=== PATIENT | female | born 1965 | race Hispanic/Latino ===

== ENCOUNTER 2016-11-28 09:24 | Outpatient (CLI) | payer BC ==
--- NOTE | 2016-11-28 16:53 | Cat Scan Report ---
CT chest with contrast: History: Breast cancer with bilateral mastectomy. Transverse images obtained through the chest with coronal and sagittal reformatted images. Comparison made to prior study of February 13, 2015. There bilateral mastectomies. No chest wall masses identified. Peripheral left upper lobe scarring and peripheral right lower lobe scarring present and unchanged from prior exam. No pulmonary nodules. No axillary, hilar, mediastinal adenopathy identified. Unremarkable thoracic aorta. No pulmonary filling abnormalities. Impression: No evidence of metastatic disease nor interval change.
--- NOTE | 2016-11-29 11:03 | Cat Scan Report ---
CT abdomen and pelvis with contrast: Breast cancer. Transverse images are obtained through the abdomen and pelvis with coronal and sagittal 2-D reformatted images. Comparison is made to a prior study in February 2015. Images of the abdomen are unremarkable. The steatosis of the liver described on prior study is not currently evident. Small cortical cyst in the upper right kidney is unchanged. The retroperitoneal structures are otherwise unremarkable and likewise unchanged. The abdominal aorta is normal in size and contour. There is no periaortic or mesenteric adenopathy appreciated. The partially opacified bowel and mesentery appear normal. The appendix is visualized. There is a fat containing umbilical hernia which remains unchanged. Sections through the pelvis demonstrate interval hysterectomy. The previously there are no blastic or lytic bone lesions identified. described enlarged left ovary is no longer apparent. Impression: No metastatic disease identified.
== END 2016-11-28 09:25 | disposition home or self-care (01) ==
LOC: SPVIMAG 09:24
PROVIDERS: ATTEND Internal Medicine Hematology & Oncology
DX: C50.919 Malignant neoplasm of unspecified site of unspecified female breast (principal); N28.1 Cyst of kidney, acquired; K76.0 Fatty (change of) liver, not elsewhere classified; K42.9 Umbilical hernia without obstruction or gangrene; Z90.710 Acquired absence of both cervix and uterus; Z90.13 Acquired absence of bilateral breasts and nipples
CPT/HCPCS: 71260; 74177; Q9967

== ENCOUNTER 2016-12-15 06:57 | Outpatient (CLI) | payer BC ==
--- NOTE | 2016-12-15 14:32 | PET Report ---
PET SB TO MT subsequent: HISTORY: Restaging of breast cancer. TECHNIQUE: 14.4 millicuries F-18 FDG was administered intravenously. Noncontrast CT images and PET images were obtained from the skull base to the proximal thighs. Fused images were reviewed on a workstation. The patient's blood glucose level measured 152. COMPARISON: 09/24/13. FINDINGS: BRAIN: physiologic FDG uptake in the imaged brain. NECK: physiologic FDG uptake. MEDIASTINUM: physiologic FDG uptake. LUNGS: physiologic FDG uptake. CHEST: Bilateral mastectomy changes are noted. No recurrent chest wall mass is appreciated. Physiologic FDG uptake. PLEURA/PERICARDIUM: physiologic FDG uptake. THORACIC LYMPH NODES: physiologic FDG uptake. HEPATOBILIARY: physiologic FDG uptake. Mean liver SUV measures 4.0. PANCREAS: physiologic FDG uptake. SPLEEN: physiologic FDG uptake. ADRENAL GLANDS: physiologic FDG uptake. KIDNEYS/RENAL COLLECTING SYSTEMS: physiologic FDG uptake. BOWEL/MESENTERY: physiologic FDG uptake. PELVIC VISCERA: physiologic FDG uptake. ABDOMINAL/PELVIC LYMPH NODES: physiologic FDG uptake. MUSCULOSKELETAL: There are 3 subtle but new areas of increased radiotracer uptake. There is a subtle focus of increased uptake in T10 with SUV max measuring 3.2. T11 with SUV max measuring 4.0. L4 with SUV max measuring 4.2. Please note there are no obvious bony lesions on the CT images in these areas. IMPRESSION: Findings concerning for disease metastasis since 09/24/13. There are 3 subtle areas of new bony uptake of the radiotracer within T10, T11 and L4 as outlined above. Please note that no definite bony lesions are detected on the CT images. Consider correlation with MR with contrast.
== END 2016-12-15 06:58 | disposition home or self-care (01) ==
LOC: PET 06:57
PROVIDERS: ATTEND Internal Medicine Hematology & Oncology
DX: C50.512 Malignant neoplasm of lower-outer quadrant of left female breast (principal); Z90.13 Acquired absence of bilateral breasts and nipples
CPT/HCPCS: 78815; A9552

== ENCOUNTER 2017-04-06 06:26 | Outpatient (CLI) | payer BC ==
--- NOTE | 2017-04-07 08:45 | PET Report ---
PET SB TO MT SUBSEQUENT: HISTORY: Restaging of left breast cancer. TECHNIQUE: 15.5 millicuries F-18 FDG was administered intravenously. Noncontrast CT images and PET images were obtained from the skull base to the proximal thighs. Fused images were reviewed on a workstation. The patient's blood glucose level measured 145. COMPARISON: 12/15/16. FINDINGS: BRAIN: physiologic FDG uptake in the imaged brain. NECK: physiologic FDG uptake. MEDIASTINUM: physiologic FDG uptake. LUNGS: physiologic FDG uptake. CHEST WALL: Bilateral mastectomy changes are again noted. No recurrent chest wall mass is identified. PLEURA/PERICARDIUM: physiologic FDG uptake. THORACIC LYMPH NODES: physiologic FDG uptake. HEPATOBILIARY: physiologic FDG uptake. Mean liver SUV measures . PANCREAS: physiologic FDG uptake. SPLEEN: physiologic FDG uptake. ADRENAL GLANDS: physiologic FDG uptake. KIDNEYS/RENAL COLLECTING SYSTEMS: physiologic FDG uptake. BOWEL/MESENTERY: physiologic FDG uptake. PELVIC VISCERA: physiologic FDG uptake. ABDOMINAL/PELVIC LYMPH NODES: physiologic FDG uptake. MUSCULOSKELETAL: Subtle bony uptake within T10, T11 and L4 are again identified and essentially unchanged. Uptake in the T10 vertebral body has increased from 3.2 to 3.5. Uptake in T11 has decreased from 4.0 to 3.6. Uptake within the L4 has decreased from 4.2 to 3.7. No new areas of abnormal bony uptake. Please note that again, no suspicious bony lesion is demonstrated on the CT images. IMPRESSION: Relatively stable findings since 12/15/16 exam. Again there are 3 subtle areas of radiotracer uptake within T10, T11 and L4 with no lytic or blastic lesion detected on the CT images. Please see above.
== END 2017-04-06 06:27 | disposition home or self-care (01) ==
LOC: PET 06:26
PROVIDERS: ATTEND Internal Medicine Hematology & Oncology
DX: C50.512 Malignant neoplasm of lower-outer quadrant of left female breast (principal); F32.9 Major depressive disorder, single episode, unspecified; F41.9 Anxiety disorder, unspecified; Z87.891 Personal history of nicotine dependence; Z90.13 Acquired absence of bilateral breasts and nipples; Z79.899 Other long term (current) drug therapy
CPT/HCPCS: 78815; 82962; A9552

== ENCOUNTER 2017-07-06 09:45 | Outpatient (CLI) | payer BC ==
--- NOTE | 2017-07-07 10:38 | PET Report ---
PET SB TO MT SUBSEQUENT: HISTORY: Breast cancer. TECHNIQUE: 15.5 millicuries F-18 FDG was administered intravenously. Noncontrast CT images and PET images were obtained from the skull base to the proximal thighs. Fused images were reviewed on a workstation. The patient's blood glucose level measured 162. COMPARISON: 04/06/17. FINDINGS: BRAIN: physiologic FDG uptake in the imaged brain. NECK: physiologic FDG uptake. CHEST WALL: Stable bilateral mastectomy changes. No recurrent chest wall mass. MEDIASTINUM: physiologic FDG uptake. LUNGS: physiologic FDG uptake. PLEURA/PERICARDIUM: physiologic FDG uptake. THORACIC LYMPH NODES: physiologic FDG uptake. HEPATOBILIARY: physiologic FDG uptake. Mean liver SUV measures 4.3. PANCREAS: physiologic FDG uptake. SPLEEN: physiologic FDG uptake. ADRENAL GLANDS: physiologic FDG uptake. KIDNEYS/RENAL COLLECTING SYSTEMS: physiologic FDG uptake. BOWEL/MESENTERY: physiologic FDG uptake. PELVIC VISCERA: physiologic FDG uptake. ABDOMINAL/PELVIC LYMPH NODES: physiologic FDG uptake. MUSCULOSKELETAL: Subtle bony uptake of the radiotracer within T10, T11 and L4 are again identified and minimally changed. Uptake within T10 has increased from 3.5 to 4.2. Uptake within T11 is stable at 3.6. Uptake within L4 has increased from 3.7 to 4.1. Approximately 4 new bony lesions are identified in the pelvis. A focal area of uptake in the right posterior iliac bone demonstrates a max SUV of 4.1. Focal uptake in the superior sacrum demonstrates a max SUV of 3.6. Focal uptake in the roof of the right acetabulum demonstrates a max SUV of 3.8. Uptake within the right ischium demonstrates a max SUV of 4.1. IMPRESSION: Minimal progression of disease is suspected since 04/06/17. The areas of subtle uptake within T10, T11 and L4 appear stable or slightly increased. There are 4 new suspicious bony lesions in the pelvis as outlined above. Perhaps very subtle sclerosis is identified at the bone lesions on the CT images on today's exam.
== END 2017-07-06 09:46 | disposition home or self-care (01) ==
LOC: PET 09:45
PROVIDERS: ATTEND Internal Medicine Hematology & Oncology
DX: C79.51 Secondary malignant neoplasm of bone (principal); C50.512 Malignant neoplasm of lower-outer quadrant of left female breast; M89.9 Disorder of bone, unspecified; Z90.13 Acquired absence of bilateral breasts and nipples; Z79.899 Other long term (current) drug therapy
CPT/HCPCS: 78815; 82962; A9552

== ENCOUNTER 2017-07-19 08:23 | Day surgery (SDC) | payer BC ==
[2017-07-19 09:09] LABS: Hematocrit 38.4 % (30.3-42.9); Mean Corpuscular HGB Conc 34 % (30-34); Mean Corpuscular Hemoglobin 33 pg (28-32); Mean Corpuscular Volume 96 fl (79-97); Platelet Count 198 K/mm3 (140-440); Red Blood Count 3.99 M/mm3 (3.65-5.03); Red Cell Distribution Width 13.9 % (13.2-15.2)
[2017-07-19 09:16] LABS: INR 0.9 (0.87-1.13)
[2017-07-19 09:17] LABS: Partial Thromboplastin Time 23.6 Sec. (24.2-36.6)
[2017-07-19] MEDS ORDERED: VERSED IV ONE (10:13)
[2017-07-19] MEDS ORDERED: SUBLIMAZE IV ONE (10:13)
[2017-07-19 10:30] LABS: Anisocytosis 1+; Blastocytes % (Manual) 0 %; Microcytosis Few
[2017-07-19 10:31] LABS: Diff Status Complete; Giant Platelets Rare; Ovalocytes 1+; Stomatocytes Few
--- NOTE | 2017-07-19 12:00 | Cat Scan Report ---
CT BIOPSY BONE DEEP HISTORY: Breast cancer, new bony lesions in pelvis. DESCRIPTION OF PROCEDURE: Informed consent was obtained. Sterile technique was utilized. 1% lidocaine for skin anesthesia. Conscious sedation was accomplished with Versed and fentanyl. The patient was sedated for 10 minutes. Independent cardiorespiratory monitoring by RN. Intraobserver time was [address] guidance, a 10-gauge introducer needle was advanced into the right posterior iliac bone at the site of an approximate 3.5 x 1.5 cm sclerotic bony lesion which was positive on recent PET imaging. One fine needle aspiration and one 11-gauge core biopsy was obtained for pathology. Samples were deemed adequate by the pathologist on site. No complications. IMPRESSION: Successful CT-guided biopsy of a right posterior iliac bone lesion.
[2017-07-19 12:18] VITALS: BP 108/72
== END 2017-07-19 12:35 | disposition home or self-care (01) ==
LOC: CATHLABREC 08:23 → EDSTATUS 08:30 → CATHLABREC 12:35
PROVIDERS: ATTEND Internal Medicine Hematology & Oncology
DX: C79.51 Secondary malignant neoplasm of bone (principal); Z85.3 Personal history of malignant neoplasm of breast; Z79.899 Other long term (current) drug therapy; Z79.01 Long term (current) use of anticoagulants
CPT/HCPCS: 20225; 36415; 77012; 85007; 85025; 85610; 85730; 88305; 88311; 88333; 88341; 88342; 88361; 99156; J2250; J3010; 88307

== ENCOUNTER 2017-12-05 15:09 | Outpatient (CLI) | payer BC ==
[2017-12-05 16:06] LABS: Blood Urea Nitrogen 18 mg/dL (7-17)
--- NOTE | 2017-12-06 08:03 | Magnetic Resonance Report ---
MRI THORACIC SPINE WITH AND WITHOUT CONTRAST MRI LUMBAR SPINE WITH AND WITHOUT CONTRAST INDICATION: Malignant neoplasm of lower-outer quadrant of left breast. COMPARISON: 07/17/2017 thoracic and lumbar spine MRIs. FINDINGS: Axial and sagittal T1 and T2-weighted MRIs of the thoracic and lumbar spines performed utilizing 15 mL MultiHance intravenously. THORACIC SPINE: Innumerable enhancing metastatic lesions throughout the thoracic spine again noted, the largest lower thoracic, predominantly involving T9-T12 with largest T11 vertebral body lesion on the left measuring 2.3 cm. Imaged lower cervical-upper thoracic lesions measuring up to approximately 1.2 cm in T1 also noted. No compression fractures. Normal thoracic spinal cord with no enhancing cord lesions. Multilevel degenerative changes again noted with disc/osteophyte complexes with partial CSF effacement as left anterolateral at T5-T6, axial series 6, image 33, left more than right at T6-T7, bilateral anterolateral at T7-T8, right anterolateral at T9-T10 with underlying cord flattening as on axial image 17 and mild left anterolateral at T11-T12. Mild disc bulge/osteophyte complexes also suspected at C5-C6 and C6-C7. Normal paraspinal soft tissues. T11 and T12 inferior endplate irregularities or Schmorl's nodes incidentally again noted. LUMBAR SPINE: Numerous enhancing metastatic lesions also noted throughout the lumbar spine, largest in L4 vertebral body on the right measuring approximately 2 cm. Similar enhancing lesions also again seen in the included sacrum. Normal conus medullaris terminating behind T12-L1. No compression fracture or spinal stenosis. Normal paraspinal soft tissues. A 5 mm right interpolar renal cyst posteriorly again seen, axial series 6, image 37. Slight diffuse disc bulge at L3-L4. Mild L5-S1 facet arthropathy, left more than right. CONCLUSION: Diffuse multilevel thoracic and lumbar spine metastatic involvement again noted, including imaged lower cervical and upper sacral levels as well without compression fractures or significant interval change. Few degenerative changes also seen, as described above. Thank you for the opportunity to participate in this patient's care.
== END 2017-12-05 15:10 | disposition home or self-care (01) ==
LOC: MRI 15:09
PROVIDERS: ATTEND Internal Medicine Hematology & Oncology
DX: C79.51 Secondary malignant neoplasm of bone (principal); C79.89 Secondary malignant neoplasm of other specified sites; C50.512 Malignant neoplasm of lower-outer quadrant of left female breast; M12.88 Other specific arthropathies, not elsewhere classified, other specified site; M47.895 Other spondylosis, thoracolumbar region; N28.1 Cyst of kidney, acquired
CPT/HCPCS: 36415; 72157; 72158; 82565; 84520; A9577

== ENCOUNTER 2018-01-25 06:07 | Outpatient (CLI) | payer BC ==
--- NOTE | 2018-01-25 15:39 | PET Report ---
PET/CT:01/25/18 06:07:00 CLINICAL: Breast cancer restaging. Followup skeletal metastases. RADIOPHARMACEUTICAL: 14.693mCi F18-FDG. COMPARISON: 07/06/17 PET/CT and MRI of thoracic and lumbar spine 12/05/17 TECHNIQUE- Following intravenous injection of F-18 FDG and an approximately 60 minute uptake period, CT and PET images from the mid skull to the upper thighs were acquired with the patient in the fasted state. No contrast was administered. The CT protocol used for this PET CT study is designed for attenuation correction and anatomic localization of PET abnormalities. This x ray service engineer CT is not desired to produce and cannot replace, lvyme-du-wlp-art diagnostic CT scans with specific imaging protocols for different body parts and indications. Plasma glucose the time of this test: 159g/dl. The standardized uptake values (SUV) are normalized to patient body weight and indicate the highest activity concentration (SUV max) in a given disease site. FINDINGS: Brain--Physiologic FDG uptake in the visualized regions of the brain. Neck--Physiologic FDG uptake . Chest--Physiologic FDG uptake in mediastinal blood pool and myocardium. Status post bilateral mastectomy. Lungs--No abnormal uptake. Stable left upper lobe scar. No pulmonary nodule or mass. Pleura/pericardium--No abnormal uptake. Thoracic nodes--No abnormal uptake. Hepatobiliary--No abnormal uptake. Liver background SUV mean, as a reference for comparing FDG studies, is 3.8 compared to 4.4 on the last exam. No liver mass. The liver has enlarged and is diffusely hypodense. It measures 21 Hounsfield units in density compared to 49 Hounsfield units on the last exam. Spleen--No abnormal uptake. Pancreas--No abnormal uptake. Adrenal Glands--No abnormal uptake. Kidneys/Ureters/Bladder--No abnormal uptake. Abdominopelvic Nodes--No abnormal uptake. Bowel/Peritoneum/Mesentery--No abnormal uptake. Pelvic organs--No abnormal uptake. Bones/Soft Tissues--No abnormal uptake. Subtle FDG uptake has resolved in the spine and pelvis. A 1 cm sclerotic lesion of L5 is more prominent than on the last exam. IMPRESSION- 1.Positive response to treatment with resolution of abnormal FDG uptake in the skeleton. 2. No new disease. 3. Treatment effect in a 1 cm L5 vertebral body lesion. 4. Interval development of hepatic steatosis and hepatomegaly.
== END 2018-01-25 06:08 | disposition home or self-care (01) ==
LOC: PET 06:07
PROVIDERS: ATTEND Internal Medicine Hematology & Oncology
DX: C79.51 Secondary malignant neoplasm of bone (principal); C50.512 Malignant neoplasm of lower-outer quadrant of left female breast; K76.0 Fatty (change of) liver, not elsewhere classified; R16.0 Hepatomegaly, not elsewhere classified; Z90.13 Acquired absence of bilateral breasts and nipples
CPT/HCPCS: 78815; 82962; A9552

== ENCOUNTER 2018-05-10 09:43 | Outpatient (CLI) | payer BC ==
--- NOTE | 2018-05-15 07:37 | PET Report ---
PET SB TO MT SUBSEQUENT: HISTORY: Breast cancer. TECHNIQUE: 11.4 millicuries F-18 FDG was administered intravenously. Noncontrast CT images and PET images were obtained from the skull base to the proximal thighs. Fused images were reviewed on a workstation. The patient's blood glucose level measured 139. COMPARISON: 01/25/18. FINDINGS: BRAIN: physiologic FDG uptake in the imaged brain. NECK: physiologic FDG uptake. CHEST WALL: physiologic FDG uptake. Stable bilateral mastectomy changes. No recurrent mass. MEDIASTINUM: physiologic FDG uptake. LUNGS: physiologic FDG uptake. Stable radiation changes in the left upper lobe. No new nodule or mass. PLEURA/PERICARDIUM: physiologic FDG uptake. THORACIC LYMPH NODES: physiologic FDG uptake. HEPATOBILIARY: physiologic FDG uptake. Mean liver SUV measures 4.0 as opposed to 3.6 on the previous exam. Mild hepatic steatosis is unchanged. PANCREAS: physiologic FDG uptake. SPLEEN: physiologic FDG uptake. ADRENAL GLANDS: physiologic FDG uptake. KIDNEYS/RENAL COLLECTING SYSTEMS: physiologic FDG uptake. BOWEL/MESENTERY: physiologic FDG uptake. PELVIC VISCERA: physiologic FDG uptake. ABDOMINAL/PELVIC LYMPH NODES: physiologic FDG uptake. MUSCULOSKELETAL: Numerous subtle sclerotic lesions throughout the lower cervical spine, thoracic spine and lumbar spine appear stable in size and number. No abnormal increased bony uptake of the radiotracer is demonstrated. IMPRESSION: Stable findings since 01/15/18. Multiple subtle sclerotic bony lesions throughout the spine appear stable in size, number and metabolic activity. No new areas of disease is detected.
== END 2018-05-10 09:44 | disposition home or self-care (01) ==
LOC: PET 09:43
PROVIDERS: ATTEND Internal Medicine Hematology & Oncology
DX: C50.512 Malignant neoplasm of lower-outer quadrant of left female breast (principal); Z87.891 Personal history of nicotine dependence; Z90.10 Acquired absence of unspecified breast and nipple; Z90.710 Acquired absence of both cervix and uterus; Z91.048 Other nonmedicinal substance allergy status
CPT/HCPCS: 78815; A9552

== ENCOUNTER 2019-01-24 08:55 | Outpatient (CLI) | payer BC ==
--- NOTE | 2019-01-25 10:46 | PET Report ---
PET/CT:01/24/19 08:55:00 CLINICAL: Breast cancer restaging. RADIOPHARMACEUTICAL: 13.982mCi F18-FDG. COMPARISON: 10/25/18 PET/CT TECHNIQUE- Following intravenous injection of F-18 FDG and an approximately 60 minute uptake period, CT and PET images from the mid skull to the upper thighs were acquired with the patient in the fasted state. No contrast was administered. The CT protocol used for this PET CT study is designed for attenuation correction and anatomic localization of PET abnormalities. This swedish masseuse CT is not desired to produce and cannot replace, huv[facility]-or-ib[facility]-art diagnostic CT scans with specific imaging protocols for different body parts and indications. Plasma glucose at the time of this test: 152g/dl. The standardized uptake values (SUV) are normalized to patient body weight and indicate the highest activity concentration (SUV max) in a given disease site. FINDINGS: Brain--Physiologic FDG uptake in the visualized regions of the brain. Neck--Physiologic FDG uptake in mucosal structures. No mass or lymphadenopathy. Chest--Physiologic FDG uptake in mediastinal blood pool and myocardium. Lungs--No abnormal uptake. The previously described bilateral multilobar patchy lung opacities have resolved. Stable left upper lobe benign scar. No pulmonary nodule or mass. Pleura/pericardium--No abnormal uptake. Thoracic nodes--No abnormal uptake. FDG uptake in the left pulmonary hilum has resolved. Hepatobiliary--The liver is diffusely hypodense and measures 73 Hounsfield units compared to 145 also units on the last exam. No liver mass is identified by CT. However, several new foci of FDG uptake are suspicious. The most prominent is in the right lobe of SUV 5.5 and there are 2 additional foci in the right lobe with SUV 5.1 and 5.2. Liver background SUV mean, as a reference for comparing FDG studies, is 4.0 compared to 3.0 on the last exam. Spleen--No abnormal uptake. Pancreas--No abnormal uptake. Adrenal Glands--No abnormal uptake. Kidneys/Ureters/Bladder--No abnormal uptake. Abdominopelvic Nodes--No abnormal uptake. Bowel/Peritoneum/Mesentery--No abnormal uptake. Pelvic organs--No abnormal uptake. Bones/Soft Tissues--No abnormal uptake. Several stable non-FDG avid mildly sclerotic bone lesions and no new bone lesions. IMPRESSION- 1. Resolution of bilateral multilobar lung opacities. 2. Several new suspicious foci of FDG uptake liver no identifiable lesions on the noncontrast CT. Recommend CT liver with contrast. 3. No evidence of pulmonary or sammy metastasis. 4. Stable non-FDG avid skeletal metastases.
== END 2019-01-24 08:56 | disposition home or self-care (01) ==
LOC: PET 08:55
PROVIDERS: ATTEND Internal Medicine Hematology & Oncology
DX: C50.512 Malignant neoplasm of lower-outer quadrant of left female breast (principal); R91.8 Other nonspecific abnormal finding of lung field; Z90.710 Acquired absence of both cervix and uterus
CPT/HCPCS: 78815; 82962; A9552

== ENCOUNTER 2019-05-02 06:40 | Outpatient (CLI) | payer BC ==
--- NOTE | 2019-05-02 11:17 | PET Report ---
PET/CT HISTORY: Malignant neoplasm of lower outer quadrant of left female breast, restaging. TECHNIQUE: The patient's fasting blood glucose was 188. The patient weighed 77 kg. The patient was injected with 14.4 mCi of FDG in the left hand at 0748 hours and imaging was started at 0830 hours. The patient was imaged from the skull base to the thighs. All CT scans at this location are performed using CT dose reduction for ALARA by means of automated exposure control. Fused images were reviewed on a workstation. COMPARISON: 01/24/2019 FINDINGS: FDG findings: No areas of pathologic hypermetabolic activity identified on today's exam. Indetermina te focal areas of increased radiotracer uptake in the liver have resolved. Mean liver uptake measures 6.7 on today's exam. Non-FDG findings: Bilateral mastectomy changes are stable. No recurrent chest wall mass or adenopath y. Heart size is within normal limits. No mediastinal adenopathy. The lungs are clear. Minor areas of scarring in the anterior lungs are stable. Diffuse fatty infiltration throughout the liver is again noted. No focal liver mass is detected. The biliary system, pancreas, spleen, kidneys and adrenal glands are unremarkable. The bowel loops are no rmal caliber. Normal appendix. Hysterectomy changes are again noted. No evidence for abdominal mass, ascites or adenopathy. Numerous tiny sclerotic bony lesions throughout the axial skeleton appear unchanged in size and numbe r. No abnormal uptake on PET. IMPRESSION: Essentially negative PET/CT. Multiple tiny sclerotic bony lesions are again seen which ap pears stable. No hypermetabolic bony lesions have developed. Previously described foci of increased u ptake in the liver have resolved. No liver mass is identified on noncontrast CT. No new areas of dise ase are identified. Signer Name: Ishmael Del Toro Jr, MD Signed: 05/02/2019 11:13 AM Workstation Name: [id number]
== END 2019-05-02 06:41 | disposition home or self-care (01) ==
LOC: PET 06:40
PROVIDERS: ATTEND Internal Medicine Hematology & Oncology
DX: C50.512 Malignant neoplasm of lower-outer quadrant of left female breast (principal); Z90.710 Acquired absence of both cervix and uterus
CPT/HCPCS: 78815; 82962; A9552

== ENCOUNTER 2019-08-29 08:54 | Outpatient (CLI) | payer BC ==
[2019-08-29 09:58] LABS: Blood Urea Nitrogen 15 mg/dL (7-17)
--- NOTE | 2019-08-29 12:57 | Cat Scan Report ---
CT CHEST WITH IV CONTRAST CT ABDOMEN AND PELVIS WITHOUT AND WITH CONTRAST INDICATION / CLINICAL INFORMATION: MET BREAST CANCER/COMPARE TO PREVIOUS. TECHNIQUE: Axial CT images were obtained through the abdomen and pelvis before contrast and through the chest, a bdomen, and pelvis after 100 mL Omnipaque [address] scans at this location are performe d using CT dose reduction for ALARA by means of automated exposure control. COMPARISON: Most recent diagnostic CT scan is from 11/28/2016. Limited correlation is made with a PET/CT scan from 05/02/2019. FINDINGS: HEART: No significant abnormality. THORACIC AORTA: No significant abnormality. MEDIASTINUM and TAMMY: No significant abnormality. LUNGS: No acute air space or interstitial disease. No nodules. Stable fibrotic changes and mild bron chiectasis in the upper lobes anteriorly, suggestive of postradiation fibrosis. PLEURA: No significant pleural effusion. No pneumothorax. ADDITIONAL CHEST FINDINGS: Bilateral mastectomy. LIVER: No focal liver lesion. No intrahepatic biliary dilatation. Diffuse hypoattenuation of the pare nchyma is suggestive of hepatic steatosis, with sparing at the gallbladder fossa. GALLBLADDER: No significant abnormality. BILE DUCTS: No significant abnormality. PANCREAS: No significant abnormality. SPLEEN: No significant abnormality. ADRENALS: No significant abnormality. RIGHT KIDNEY and URETER: No significant abnormality. There are couple of tiny cysts in the kidney jess t are stable since at least 11/28/2016. LEFT KIDNEY and URETER: No significant abnormality. STOMACH and SMALL BOWEL: No significant abnormality. COLON: No significant abnormality. APPENDIX: No significant abnormality. PERITONEUM: No free fluid. No free air. No fluid collection. LYMPH NODES: No significant adenopathy. AORTA and ARTERIES: No significant abnormality. IVC and VEINS: No significant abnormality. URINARY BLADDER: No significant abnormality. REPRODUCTIVE ORGANS: Uterus is absent. No significant adnexal abnormality. ADDITIONAL FINDINGS: None. SKELETAL SYSTEM: No new abnormality. Innumerable cysts sclerotic foci are seen throughout the axial s [place], appearing unchanged. IMPRESSION: 1. The numerous sclerotic lesions throughout the axial skeleton are most compatible with treated meta stasis. Correlation with today's bone scan is recommended. Otherwise, there is no evidence of metasta tic disease in the chest, abdomen and pelvis. 2. Status post bilateral mastectomies without CT evidence of local recurrence. 3. Suspected hepatic steatosis. Signer Name: Esau Solo MD Signed: 08/29/2019 12:53 PM Workstation Name: [id number]
--- NOTE | 2019-08-30 12:59 | Nuclear Medicine Report ---
WHOLE BODY BONE SCAN HISTORY: History of left breast cancer and numerous sclerotic skeletal lesions by CT. COMPARISON: Same day CT chest, abdomen and pelvis and 05/02/2019 PET/CT. No previous bone scan is avai lable. TECHNIQUE: Following administration of Tc-99m MDP, static whole body anterior and posterior delayed p hase images were acquired. RADIOPHARMACEUTICAL: 27.5 mCi Tc-99m MDP. FINDINGS: Multifocal mild uptake in the sternum with the greatest uptake in the lower one third of the midline sternum and the right manubrium correlate with sclerotic lesions by CT. Subtle focal uptake in the ri ght posterior seventh rib with no correlating lesion by CT. Focal uptake at the inferior aspect of th e left SI joint with no correlating CT lesion. Focal uptake of the distal humerus at the elbow. Krystle l physiologic background activity. Additional Findings: None. IMPRESSION: 1. Suspicious multifocal uptake in the sternum, manubrium, right seventh posterior rib, left SI joint and distal left numerous. 2. No other suspicious skeletal lesions. Signer Name: Param Jackson MD Signed: 08/29/2019 1:17 PM Workstation Name: [id number]
== END 2019-08-29 08:55 | disposition home or self-care (01) ==
LOC: NM 08:54
PROVIDERS: ATTEND Internal Medicine Hematology & Oncology
DX: C50.512 Malignant neoplasm of lower-outer quadrant of left female breast (principal)
CPT/HCPCS: 36415; 71260; 74177; 78306; 82565; 84520; A9503; Q9967

== ENCOUNTER 2019-12-05 09:42 | Outpatient (CLI) | payer BC ==
--- NOTE | 2019-12-05 14:22 | PET Report ---
PET/CT HISTORY: HX OF BREAST CA /RESTAGING. TECHNIQUE: The patient's fasting blood glucose was 198. The patient weighed 175 lbs. The patient w as injected with 14.11 mCi of FDG in the left antecubital fossa at 1101 and imaging was started at 11 58. The patient was imaged from the skull base to the thighs. All CT scans at this location are perf ormed using CT dose reduction for ALARA by means of automated exposure control. Images were reviewed on a workstation. COMPARISON: PET/CT dated 05/02/2019. Medicine bone scan dated 08/29/2019. FINDINGS: IMAGED BRAIN: Physiologic FDG uptake. NECK: Physiologic FDG uptake. CHEST WALL: Physiologic FDG uptake. Stable mastectomy changes. No recurrent chest wall mass or extra thoracic adenopathy. MEDIASTINUM: Physiologic FDG uptake. LUNGS: Physiologic FDG uptake. HEPATOBILIARY: Physiologic FDG uptake. PANCREAS: Physiologic FDG uptake. SPLEEN: Physiologic FDG uptake. KIDNEYS/BLADDER: Physiologic FDG uptake. ADRENAL GLANDS: Physiologic FDG uptake. GI/MESENTERY: Physiologic FDG uptake. PELVIC VISCERA: Physiologic FDG uptake. LYMPH NODES: Physiologic FDG uptake. OSSEOUS STRUCTURES: Diffuse focal sclerotic lesions throughout the skeletal structures are again not ed on the CT images and not significantly changed in size and number. There is however new areas of m ild hypermetabolic activity in the bony structures as suggested on recent nuclear medicine bone scan. There is borderline uptake in the right side of the manubrium with max SUV measuring 2.5. There is i ncreased uptake in the mid sternal lesion with max SUV measuring 3.4. There is increased uptake in th e right side of the L1 vertebral body with max SUV measuring 6.7. There is a focus of increased uptak e in the right side of the sacrum near the level of S1 with max SUV measuring 4.7. ADDITIONAL FINDINGS: None. IMPRESSION: Mild progression of disease/recurrence is noted in the skeletal structures since the previous PET/CT . Subtle hypermetabolic bony lesions are identified in the right side of the manubrium, mid sternum, L1 vertebral body and right side of the sacrum. The numerous small sclerotic lesions appear unchanged on the CT images. No abnormal visceral organ uptake or sammy uptake is detected. Signer Name: Ishmael Del Toro Jr, MD Signed: 12/05/2019 2:17 PM Workstation Name: [id number]
== END 2019-12-05 09:43 | disposition home or self-care (01) ==
LOC: PET 09:42
PROVIDERS: ATTEND Internal Medicine Hematology & Oncology
DX: C50.512 Malignant neoplasm of lower-outer quadrant of left female breast (principal)
CPT/HCPCS: 78815; 82962; A9552

== ENCOUNTER 2020-03-19 06:25 | Outpatient (CLI) | payer MEDICARE ==
--- NOTE | 2020-03-19 11:01 | PET Report ---
PET-CT SCAN INDICATION / CLINICAL INFORMATION: BREAST CA C50.512. STAGING: Re-staging TECHNIQUE: Tumor imaging, positron emission tomography (PET) with concurrently acquired computed tomography (CT) for attenuation correction and anatomical localization; Skull Base to Mid Thigh - DOSE: 14.25 mCi F-18 FDG was administered IV per protocol in the left antecubital site - GLUCOSE: Patient's blood glucose at that time was (mg/dL): 147 - UPTAKE TIME: PET scan performed approximately 60 minutes after radiotracer administration. - CT SCAN DESCRIPTION: No oral or IV contrast. All CT scans at this location are performed using CT d ose reduction for ALARA by means of automated exposure control. COMPARISON: PET CT scan dated 12/05/2019 FINDINGS: HEAD / NECK: No abnormal radiotracer uptake in the neck. No significant CT abnormality. CHEST: No abnormal radiotracer uptake in the chest. There is some scarring bilaterally likely related to prior radiation area. Changes of bilateral mastectomy are noted. ABDOMEN / PELVIS: No abnormal radiotracer uptake in the abdomen. There is fatty infiltration of the l iver. LOWER EXTREMITIES: No abnormal radiotracer uptake in the visualized lower extremities. No significant CT abnormality. SKELETAL STRUCTURES: Low level in the sternum and manubrium is again noted. This measures up to 2.6 S UV on the current study the sternal area measured up to 3.4 previously. The previously noted abnormal uptake in the right aspect of the L1 vertebral body has resolved. The uptake in the sacrum is also i mproved. The right sacrum this area measures 3 SUV currently and measured 4.7 previously. There are innumerable sclerotic lesions in the imaged skeleton which appear essentially unchanged. ADDITIONAL FINDINGS: No additional significant findings. IMPRESSION: 1. There is extensive sclerotic osseous metastatic disease. Tracer uptake in the sternum and manubriu m is again noted. Sternal activity is mildly improved. Uptake in the L1 vertebra and in the sacrum no john on the prior study has improved as well. No new abnormalities are identified. Signer Name: Tay Elizabeth MD Signed: 03/19/2020 10:56 AM Workstation Name: [id number]
== END 2020-03-19 06:26 | disposition home or self-care (01) ==
LOC: PET 06:25
PROVIDERS: ATTEND Internal Medicine Hematology & Oncology
DX: C79.51 Secondary malignant neoplasm of bone (principal); C50.512 Malignant neoplasm of lower-outer quadrant of left female breast
CPT/HCPCS: 78815; 82962; A9552

== ENCOUNTER 2020-06-11 06:35 | Outpatient (CLI) | payer MEDICARE ==
--- NOTE | 2020-06-11 09:38 | PET Report ---
PET-CT SCAN INDICATION / CLINICAL INFORMATION: C50.512 LEFT BREAST CA. STAGING: Re-staging TECHNIQUE: Tumor imaging, positron emission tomography (PET) with concurrently acquired computed tomography (CT) for attenuation correction and anatomical localization; Skull Base to Mid Thigh - DOSE: 14.022 mCi F-18 FDG was administered IV per protocol - GLUCOSE: Patient's blood glucose at that time was (mg/dL): 176 - UPTAKE TIME: PET scan performed approximately 60 minutes after radiotracer administration. - CT SCAN DESCRIPTION: No oral or IV contrast. All CT scans at this location are performed using CT d ose reduction for ALARA by means of automated exposure control. COMPARISON: PET CT dated 03/19/2020. FINDINGS: HEAD / NECK: No abnormal radiotracer uptake in the neck. No significant CT abnormality. CHEST: No abnormal radiotracer uptake in the chest. No significant CT abnormality. ABDOMEN / PELVIS: No abnormal radiotracer uptake in the abdomen. Hepatic steatosis is unchanged. Mild generalized atherosclerosis is stable. No other significant CT abnormality. LOWER EXTREMITIES: No abnormal radiotracer uptake in the visualized lower extremities. No significant CT abnormality. SKELETAL STRUCTURES: There are stable mildly increased activity along the sternum and spine. No new s uspicious sites of increased metabolic activity are noted. Widespread sclerotic metastases have not s ignificantly changed. ADDITIONAL FINDINGS: No additional significant findings. IMPRESSION: 1. Stable widespread sclerotic bone metastases with associated low level increased metabolic activity . 2. No new sites of FDG avid neoplastic disease. Signer Name: Srikanth Torres MD Signed: 06/11/2020 9:33 AM Workstation Name: [id number]
== END 2020-06-11 06:36 | disposition home or self-care (01) ==
LOC: PET 06:35
PROVIDERS: ATTEND Internal Medicine Hematology & Oncology
DX: C79.51 Secondary malignant neoplasm of bone (principal); C50.512 Malignant neoplasm of lower-outer quadrant of left female breast
CPT/HCPCS: 78815; 82962; A9552

== ENCOUNTER 2020-09-17 07:27 | Outpatient (CLI) | payer MEDICARE ==
--- NOTE | 2020-09-17 12:01 | PET Report ---
PET-CT SCAN INDICATION / CLINICAL INFORMATION: C50.512. Left breast cancer STAGING: Re-staging TECHNIQUE: Tumor imaging, positron emission tomography (PET) with concurrently acquired computed tomography (CT) for attenuation correction and anatomical localization; Skull Base to Mid Thigh - DOSE: 14.83 mCi F-18 FDG was administered IV per protocol in the left elbow - GLUCOSE: Patient's blood glucose at that time was (mg/dL): 135 - UPTAKE TIME: PET scan performed approximately 60 minutes after radiotracer administration. - CT SCAN DESCRIPTION: No oral or IV contrast. All CT scans at this location are performed using CT d ose reduction for ALARA by means of automated exposure control. COMPARISON: PET CT from 06/11/2020. FINDINGS: HEAD / NECK: No abnormal radiotracer uptake in the neck. No significant CT abnormality. CHEST: No abnormal radiotracer uptake in the chest. There is similar probable scarring located latera lly along the left upper lobe. No other significant abnormality. ABDOMEN / PELVIS: New hypermetabolic liver masses are seen within both lobes. A commercial representative latera l segment left hepatic lobe mass on image [address] measures 2.9 x 2.6 cm with a maximum SUV of 5 .5. No other sites of suspiciously increased metabolic activity. Generalized steatosis is again seen. No other significant abnormality/interval changes. LOWER EXTREMITIES: No abnormal radiotracer uptake in the visualized lower extremities. No significant CT abnormality. SKELETAL STRUCTURES: Widespread sclerotic metastases are again seen throughout the spine, sternum and along the proximal humeri and femurs without significant interval change and similar associated mild ly increased metabolic activity. No new aggressive appearing lesion. ADDITIONAL FINDINGS: No additional significant findings. IMPRESSION: 1. Interval disease progression with development of multifocal hypermetabolic hepatic metastases. 2. Similar widespread bone metastases. Signer Name: Srikanth Torres MD Signed: 09/17/2020 11:57 AM Workstation Name: [id number]
== END 2020-09-17 07:28 | disposition home or self-care (01) ==
LOC: PET 07:27
PROVIDERS: ATTEND Internal Medicine Hematology & Oncology
DX: C50.512 Malignant neoplasm of lower-outer quadrant of left female breast (principal); C79.51 Secondary malignant neoplasm of bone; R16.0 Hepatomegaly, not elsewhere classified; K76.0 Fatty (change of) liver, not elsewhere classified
CPT/HCPCS: 78815; 82962; A9552

== ENCOUNTER 2021-02-25 06:42 | Outpatient (CLI) | payer MEDICARE ==
--- NOTE | 2021-02-25 09:37 | PET Report ---
PET/CT HISTORY: C50.512 LEFT BREAST CA. TECHNIQUE: The patient's fasting blood glucose was 187. The patient weighed 142 lbs. The patient w as injected with 13.0 mCi of FDG in the left antecubital fossa at 0722 hours and imaging was started at 0807 hours. The patient was imaged from the skull base to the thighs. All CT scans at this locati on are performed using CT dose reduction for ALARA by means of automated exposure control. Images wer e reviewed on a workstation. COMPARISON: 09/17/2020 FINDINGS: IMAGED BRAIN: Physiologic FDG uptake. NECK: Physiologic FDG uptake. CHEST WALL: Physiologic FDG uptake. Stable bilateral mastectomy changes. MEDIASTINUM: Physiologic FDG uptake. LUNGS: Physiologic FDG uptake. Stable subpleural scarring in the anterior left lung which probably r epresents radiation changes. No suspicious pulmonary lesion has developed. HEPATOBILIARY: Underlying hepatic steatosis is greatly improved since the previous exam. Numerous hy podense liver masses are identified on today's exam which appear slightly decreased in size and metab olic activity. A territory sales representative lesion in the left hepatic lobe has decreased from 2.9 x 2.6 cm to 2. 4 x 2.3 cm. Max SUV of this lesion has decreased from 5.5 to 2.2. No hypermetabolic liver lesions are appreciated on today's exam. PANCREAS: Physiologic FDG uptake. SPLEEN: Physiologic FDG uptake. KIDNEYS/BLADDER: Physiologic FDG uptake. ADRENAL GLANDS: Physiologic FDG uptake. GI/MESENTERY: Physiologic FDG uptake. PELVIC VISCERA: Physiologic FDG uptake. Stable hysterectomy changes. LYMPH NODES: Physiologic FDG uptake. No lymphadenopathy is detected. OSSEOUS STRUCTURES: Physiologic FDG uptake. Numerous small sclerotic bony lesions throughout the herber rnum, ribs, spine, pelvis and proximal femurs appear stable in size and number. The bony lesions are hypometabolic on today's exam with max SUV ranging from 1.5-2.0. ADDITIONAL FINDINGS: None. IMPRESSION: A positive response to therapy is demonstrated since 09/17/2020 exam. Diffuse hepatic metastases appea r stable in number but slightly decreased in size. Hypermetabolic activity within the liver lesions h as resolved on today's exam. Numerous bony metastasis appear stable and also are hypometabolic on tod ay's exam. No new areas of disease are identified. Apparent complete resolution of hepatic steatosis. Signer Name: Ishmael Del Toro Jr, MD Signed: 02/25/2021 9:32 AM Workstation Name: [id number]
== END 2021-02-25 06:43 | disposition home or self-care (01) ==
LOC: PET 06:42
PROVIDERS: ATTEND Internal Medicine Hematology & Oncology
DX: C50.512 Malignant neoplasm of lower-outer quadrant of left female breast (principal); B02.9 Zoster without complications; R59.0 Localized enlarged lymph nodes; K76.0 Fatty (change of) liver, not elsewhere classified; R16.0 Hepatomegaly, not elsewhere classified; Z90.711 Acquired absence of uterus with remaining cervical stump
CPT/HCPCS: 78815; 82962; A9552

== ENCOUNTER 2021-05-27 07:29 | Outpatient (CLI) | payer MEDICARE ==
--- NOTE | 2021-05-27 11:55 | PET Report ---
PET sb to mt subsequent INDICATION / CLINICAL INFORMATION: BREAST CA C50.512. TRACER: F-18 FDG 13.62 mCi IV injection: 05/27/2021. Blood glucose is 114 mg/dL. TECHNIQUE: Following injection of the above tracer and appropriate delay, PET imaging was performed from the [facility] ll base to the upper thighs. CT imaging was performed same time for the purposes of anatomic localiza tion. All CT examinations at this institution utilize dose reduction: Automated exposure control. COMPARISON: PET CT 02/25/2021. FINDINGS: HEAD/NECK: No abnormal uptake. CHEST: No abnormal uptake. ABDOMEN/PELVIS: On the CT portion of the exam, the liver lesions are predominantly mildly increased in size. A repres entative lesion at the posterior segment of the right hepatic lobe is increased from 1. 2-1.8 cm. The se lesions are predominantly nonmetabolic. Localized uptake is seen along the lateral aspect of the p osterior segment of the right hepatic lobe with maximal SUV of 4.3. Localized bony uptake is seen at the right sacrum with maximal SUV of 4.4.. UPPER LEGS: More localized uptake at the proximal femoral diaphysis bilaterally right greater than left. Maximal SUV is 3.1. INCIDENTAL CT FINDINGS: Multifocal bony metastatic disease without significant change. IMPRESSION: Mild worsening of hepatic and bony metastatic disease. Signer Name: Sabino Singletary MD Signed: 05/27/2021 11:51 AM Workstation Name: [id number]
== END 2021-05-27 07:30 | disposition home or self-care (01) ==
LOC: PET 07:29
PROVIDERS: ATTEND Internal Medicine Hematology & Oncology
DX: C50.512 Malignant neoplasm of lower-outer quadrant of left female breast (principal); B02.9 Zoster without complications; Z51.11 Encounter for antineoplastic chemotherapy; R53.83 Other fatigue; C79.51 Secondary malignant neoplasm of bone; M79.2 Neuralgia and neuritis, unspecified; L27.1 Localized skin eruption due to drugs and medicaments taken internally; R19.7 Diarrhea, unspecified; K85.90 Acute pancreatitis without necrosis or infection, unspecified; R68.89 Other general symptoms and signs; R93.89 Abnormal findings on diagnostic imaging of other specified body structures; R97.8 Other abnormal tumor markers; D64.9 Anemia, unspecified; D75.9 Disease of blood and blood-forming organs, unspecified; J32.9 Chronic sinusitis, unspecified; D72.819 Decreased white blood cell count, unspecified; R23.2 Flushing; E11.9 Type 2 diabetes mellitus without complications; Z17.0 Estrogen receptor positive status [ER+]
CPT/HCPCS: 78815; 82962; A9552

== ENCOUNTER 2021-10-07 05:53 | Outpatient (CLI) | payer MEDICARE ==
--- NOTE | 2021-10-07 10:52 | PET Report ---
PET/CT HISTORY: C50.512 LEFT BREAST CA. TECHNIQUE: The patient's fasting blood glucose was 165. The patient weighed 120 lbs. The patient w as injected with 13.5 mCi of FDG in the left antecubital fossa at 0641 hours and imaging was started at 0808 hours. The patient was imaged from the skull base to the thighs. All CT scans at this locati on are performed using CT dose reduction for ALARA by means of automated exposure control. Images wer e reviewed on a workstation. COMPARISON: 05/27/2021 FINDINGS: IMAGED BRAIN: Physiologic FDG uptake. NECK: Physiologic FDG uptake. CHEST WALL: Physiologic FDG uptake. MEDIASTINUM: Physiologic FDG uptake. LUNGS: Physiologic FDG uptake. HEPATOBILIARY: Numerous hypodense liver lesions are again identified which appear increased in size and number by approximately 25-50%. For instance, a entry level marketing representative lesion in the inferior right hepat ic lobe has increased from 1.8 cm to 2.4 cm with max SUV increasing from 3.0 to 4.7. A second lesion in the posterior right hepatic lobe has increased from 2.8 cm to 4.4 cm with max SUV increasing from 4.4 to 4.6. PANCREAS: Physiologic FDG uptake. SPLEEN: Physiologic FDG uptake. KIDNEYS/BLADDER: Physiologic FDG uptake. ADRENAL GLANDS: Physiologic FDG uptake. GI/MESENTERY: Physiologic FDG uptake. PELVIC VISCERA: Physiologic FDG uptake. LYMPH NODES: Physiologic FDG uptake. OSSEOUS STRUCTURES: Numerous sclerotic bony lesions throughout the chest abdomen and pelvis appear s table in size and number. Most of the bone lesions remain nonhypermetabolic. Previously described rig ht sacral uptake has decreased from max SUV of 4.4 to 3.6. No convincing new bony lesions are detecte d. ADDITIONAL FINDINGS: None. IMPRESSION: A mixed response to therapy is demonstrated. Hepatic metastatic disease has increased by approximate ly 25-50% since 05/27/2021. Osseous metastatic lesions appears stable in number with mild decreased me tabolic activity as noted above. No new areas of disease are detected. Signer Name: Ishmael Del Toro Jr, MD Signed: 10/07/2021 10:47 AM Workstation Name: [id number]
== END 2021-10-07 05:54 | disposition home or self-care (01) ==
LOC: PET 05:53
PROVIDERS: ATTEND Internal Medicine Hematology & Oncology
DX: C50.512 Malignant neoplasm of lower-outer quadrant of left female breast (principal); B02.9 Zoster without complications
CPT/HCPCS: 78815; 82962; A9552